=== PATIENT | female | born 1995 | race Caucasian/White ===

== ENCOUNTER 2019-10-05 11:37 | Outpatient (CLI) | payer OTHER | END 2019-10-05 12:35 | disposition home or self-care (01) | LOC: NST 11:37 | PROVIDERS: ATTEND Specialist | DX: Z34.83 Encounter for supervision of other normal pregnancy, third trimester (principal) ==

== ENCOUNTER 2019-10-10 04:48 | Inpatient (IN) | payer OTHER ==
[~2019-10-10] VITALS: Ht 160 cm; Wt 3.6 kg
[2019-10-10] MEDS ORDERED: LOVENOX30 MG/0.3 SUBCUTANEO (05:44)
[2019-10-10] MEDS ORDERED: TERBUTALINE SU2.5 MG PO (05:47)
== END 2019-10-12 13:44 | DRG 788 ==
LOC: OB/GYN 04:48 → LDR 04:48 → O/R 04:48 → OB/GYN 09:44
PROVIDERS: ADMIT Specialist; ATTEND Specialist
PROC: 4A1HXCZ Monitoring of Products of Conception, Cardiac Rate, External Approach (ICD-10-PCS; 2019-10-10)
PROC: 10D00Z1 Extraction of Products of Conception, Low, Open Approach (ICD-10-PCS; principal; 2019-10-10 07:00)
DX: O82 Encounter for cesarean delivery without indication (principal); O32.2XX1 Maternal care for transverse and oblique lie, fetus 1; Z3A.37 37 weeks gestation of pregnancy; Z37.0 Single live birth

== ENCOUNTER 2023-07-03 00:52 | Emergency (ER) | payer OTHER ==
[~2023-07-03] VITALS: Ht 160 cm; Wt 83.5 kg
[~2023-07-03 00:52] MED LIST: LOVENOX30 MG/0.3 SUBCUTANEO; TERBUTALINE SU2.5 MG PO
[2023-07-03] MEDS ORDERED: METHYLPREDNISOLONE SOD SUCC 125 MG VIAL IV STA (01:07)
[2023-07-03] MEDS ORDERED: IPRATROPIUM BROMIDE 0.5 MG/2.5 ML AMPUL.NEB IH STA (01:08)
[2023-07-03] MEDS ORDERED: HYDROCODONE/CHLORPHEN P-STIREX 5 ML ML PO STA (01:10)
[2023-07-03] MEDS ORDERED: ALBUTEROL SULFATE 3 ML/2.5 MG AMPUL.NEB IH SCH (01:15)
[2023-07-03 02:02] LABS: HEMATOCRIT 40.7 % (36.0-45.00); HEMOGLOBIN 13.4 g/dL (12.0-15.00); MEAN CELL VOLUME 80.5 fL (80.00-100.00); MEAN CORPUSCULAR HEMOGLOBIN 26.6 pg (27.00-32.0); PLATELET COUNT 264 K/uL (150-450); RED BLOOD COUNT 5.06 M/uL (4.00-6.00); RED CELL DISTRIBUTION WIDTH 15.5 % (11.5-14.5)
== END 2023-07-03 04:04 | disposition home or self-care (01) ==
LOC: ER 00:52
DX: J45.991 Cough variant asthma (principal); J06.9 Acute upper respiratory infection, unspecified; Z20.822 Contact with and (suspected) exposure to COVID-19

== ENCOUNTER 2024-02-03 16:36 | Emergency (ER) | payer OTHER ==
[~2024-02-03] VITALS: Ht 167.6 cm; Wt 74.8 kg
[2024-02-03] MEDS ORDERED: CEFTRIAXONE SODIUM 1,000 MG VIAL IM STA (18:52)
== END 2024-02-03 19:28 | disposition home or self-care (01) ==
LOC: ER 16:38
DX: J06.9 Acute upper respiratory infection, unspecified (principal); Z20.822 Contact with and (suspected) exposure to COVID-19